=== PATIENT | male | born 2000 | race Caucasian/White ===

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

== ENCOUNTER 2022-11-09 20:56 | Emergency (ER) | payer BC, SELFPAY ==
[2022-11-09 20:57] VITALS: BP 109/84; PULSE 90; RESP 20; TEMP 37.1; O2SAT 100; BMI 16.1
[2022-11-09 21:03] VITALS: BP 109/84; PULSE 99; O2SAT 99
[2022-11-09 21:43] LABS: Microscopic, Urine URINE MICROSCOPIC (MICROSCOPIC)
[2022-11-09 21:43] LABS: Chloride 102 mmol/L (98-107)
[2022-11-09 21:44] LABS: Basophils % 0.2 % (0.1-2.0); Eosinophils # 0.1 K/mm3 (0.0-0.4); Eosinophils % 1.2 % (0.1-12.0); Hematocrit 43.8 % (42.0-52.0); Lymphocytes # 1.2 K/mm3 (0.7-4.5); Lymphocytes % 12.3 % (10-50); Mean Corpuscular Hemoglobin 25.3 pg (27.0-31.2); Mean Corpuscular Volume 79.2 fl (80-94); Monocytes # 0.4 K/mm3 (0.1-1.0); Monocytes % 3.8 % (1.7-9.3); Neutrophils # 8.4 K/mm3 (1.8-7.8); Neutrophils % 82.6 % (37.0-80.0); Platelet Count 179 K/mm3 (142-424); Potassium 3.6 mmoL/L (3.5-5.1); Red Blood Count 5.53 M/mm3 (4.60-6.20); Red Cell Distribution Width 14.7 % (11.5-17.5); Sodium 138 mmol/L (136-145); White Blood Count 10.1 K/mm3 (4.8-10.8)
[2022-11-09 21:47] LABS: Appearance,Urine CLEAR (Clear); Bilirubin,Urine Negative (Negative); Blood, Urine Negative (Negative); Color,Urine YELLOW (Yellow); Glucose,Urine (UA) Negative (Negative); Ketones,Urine Negative (Negative); Leukocyte Esterase,Urine Negative (Negative); Nitrate,Urine Negative (Negative); Protein,Urine Negative (Negative); Specific Gravity, Urine 1.015 (1.005-1.030)
[2022-11-09 21:47] LABS: Alanine Aminotransferase 36 U/L (12-78); Albumin Level 4.8 g/dl (3.5-5.0); Albumin/Globulin Ratio 1.5 (1.1-1.8); Alkaline Phosphatase 72 U/L (38-126); Anion Gap 14.6 mEq/L (5-15); Aspartate Amino Transferase 46 U/L (17-59); Bilirubin,Total 1.2 mg/dl (0.2-1.3); Blood Urea Nitrogen 14 mg/dl (9-20); Calcium 9.6 mg/dl (8.4-10.2); Carbon Dioxide 25 mmol/L (22.0-30.0); Creatinine Clearance Estimated 111 mL/min (50-200); Estimated Glomerular Filt Rate 121 ml/min (>60); GFR (African American) 146 ML/MIN (>60); Globulin 3.2 g/dL (1.3-3.2); Glucose 130 mg/dl (74-100)
--- NOTE | 2022-11-09 21:51 | XR_ITS ---
PROCEDURE INFORMATION: Exam: XR Complete Acute Abdomen Series Including Chest Exam date and time: 11/09/2022 9:51 PM Age: 22 years old Clinical indication: Abdominal pain; Epigastric; Additional info: Epigastric pain TECHNIQUE: Imaging protocol: Radiologic exam. Complete acute abdomen series, including 2 or more views of the abdomen and a single view chest. COMPARISON: ABDPELW CT abdomen pelvis w con 07/11/2018 5:01 PM FINDINGS: Lungs: Normal. No consolidation. Pleural spaces: Normal. No pleural effusions. No pneumothorax. Heart/Mediastinum: Normal. No cardiomegaly. Gastrointestinal tract: Normal. No bowel dilation. Intraperitoneal space: Normal. No free air. Bones/joints: Normal. No acute fracture. Soft tissues: Normal. IMPRESSION: No acute findings.
[2022-11-09 21:54] VITALS: BP 117/72; PULSE 90; O2SAT 96
[2022-11-09 22:10] LABS: Squamous Epithelial Cell,Urine Occasional #/hpf (0-5)
[2022-11-09 22:30] VITALS: BP 124/70; PULSE 91; O2SAT 96
--- NOTE | 2022-11-09 22:47 | PC.NURSE ---
spoke with [facility] powerhouse tender in regards to pt records. [employer] states she will fax them over
--- NOTE | 2022-11-09 22:54 | HMH.EDABDPAI ---
Discharge Plan Disposition Patient Disposition: Home, Self-Care Prescriptions Prescriptions: New dicyclomine 20 mg tablet 20 mg PO QID PRN (Reason: abdominal pain) Qty: 20 0RF Referrals Follow up/Referrals: Salvatore Silva MD [Primary Care Provider] - See instructions Clinical Impressions Clinical Impression: Abdominal pain Instructions Patient Instructions: DI for Acute Abdominal Pain Discharge ED Provider: Jelena Saini Abdominal Pain HPI General Chief Complaint: Abdominal Pain Stated Complaint: abd pain Time Seen by Provider: 11/09/22 21:31 Mode of Arrival: Wheelchair Source of Information: Patient Limitations: No Limitations Description of Symptoms (Recalled from ER Triage Doc. by RN): Pt had a colonoscopy on 10/17 with 5 biopsies taken. Today he had a CT with gastrografin done at [facility] to rule out chrons disease. Pt states he ate a light dinner and his upper abdomen is cramping and he has pian 10/10. No vomiting, but episodes of nausea and diarrhea. History of Present Illness HPI narrative: Patient is a 22-year male who is here secondary to abdominal pain. Patient's complaint severe abdominal pain after he has a CT scan today. Patient said the pain in the epigastric area was 10 out of 10. Patient has no nausea vomiting or diarrhea or constipation associated with it. He has history irritable bowel disease and C. difficile colitis. He was on antibiotic for extended period of time when he had his chronic strep throat. Patient stated that his GI doctor did a scope and found multiple areas of inflammation on his colon they think he could have Crohn's or ulcerative colitis and they are waiting for results from the biopsy. Patient stated that after the CT and he had the oral Gastrografin he had severe pain so he brought himself here but the pain is resolved now. complaint: abdominal pain (Epigastric tenderness) Onset (ago): hour(s) Consistency: intermittent Location: epigastric Severity: severe Severity scale (1-10): 10 Quality: cramping and sharp Radiation: none Migration to: no migration Relieving factors: nothing Exacerbating factors: nothing Associated symptoms: denies other symptoms Related Data Previous Rx's Medication Instructions Recorded dicyclomine 20 mg tablet 20 mg PO QID PRN abdominal pain 11/09/22 #20 tabs Allergies Allergy/AdvReac Type Severity Reaction Status Date / Time No Known Allergies Allergy Unverified 04/17/17 15:08 [facility] Disclaimer: The information contained in this section may have been updated after the patient was seen, as this information can be updated by other users. Social History Smoking Status: Smoker, status unknown alcohol intake: never current occupational status: unemployed Travel in the last 8 weeks: None ROS Obtained: Yes All systems reviewed & no additional complaints except as documented Gastrointestinal Gastrointestingal: Reports abdominal pain Physical Exam General General appearance: alert and in distress Head Head exam: atraumatic, normocephalic and normal inspection Eye Eye exam: Present normal appearance and EOMI; Absent scleral icterus or conjunctival redness ENT ENT exam: Present normal exam, normal oropharynx and mucous membranes moist Neck Neck exam: Present normal inspection, full ROM and trachea midline Chest Chest inspection: Present normal inspection and symmetric chest wall rise Respiratory Respiratory exam: Present normal lung sounds bilaterally Cardiovascular Cardiovascular exam: Present regular rate, normal rhythm, normal heart sounds, +S1 and +S2 Abdominal Exam Abdominal exam: Present soft and normal bowel sounds; Absent distention, tenderness, guarding, rebound or rigidity Extremities Exam Extremities exam: Present normal inspection, full ROM and normal capillary refill; Absent tenderness Back Exam Back exam: Present normal inspection
[2022-11-09 23:00] VITALS: BP 112/75; PULSE 88; RESP 16; TEMP 37.1
== END 2022-11-09 23:08 | disposition home or self-care (01) ==
PROVIDERS: Emergency Provider Emergency Medicine; PCP Family Medicine
DX: R10.13 Epigastric pain (principal); K58.9 Irritable bowel syndrome, unspecified
CPT/HCPCS: 74021; 80053; 81001; 85025; 99284; 99285

== ENCOUNTER 2023-07-25 18:58 | Outpatient (CLI) | payer BC, SELFPAY ==
[2023-07-31 23:29] LABS: Pancreatic Elastase, Fecal >500 (>200)
[2023-08-01 01:08] LABS: Calprotectin, Fecal 2720 ug/g (0-120)
== END 2023-07-25 23:59 ==
LOC: LAB.DROPOF 18:59
PROVIDERS: PCP Internal Medicine Gastroenterology; Visit Provider Internal Medicine Gastroenterology
DX: K50.018 Crohn's disease of small intestine with other complication (principal); R19.5 Other fecal abnormalities; R15.0 Incomplete defecation
CPT/HCPCS: 82656; 83993

== ENCOUNTER 2023-09-27 14:40 | Outpatient (CLI) | payer BC, SELFPAY ==
[2023-09-29 21:14] LABS: QuantiFERON-TB Gold Plus Negative (Negative)
== END 2023-09-27 23:59 | disposition home or self-care (01) ==
LOC: LAB 14:42
PROVIDERS: PCP Family Medicine; Visit Provider Internal Medicine Gastroenterology
DX: R76.12 Nonspecific reaction to cell mediated immunity measurement of gamma interferon antigen response without active tuberculosis (principal)
CPT/HCPCS: 36415; 86480

== ENCOUNTER 2023-10-15 12:48 | Outpatient (CLI) | payer BC, SELFPAY ==
[2023-10-15] MEDS: METHYLPREDNISOLONE SOD SUCC 125MG VIAL 125 MG (13:05)
[2023-10-15] MEDS: ACETAMINOPHEN 325MG TAB 650 MG (13:05)
[2023-10-15] MEDS: 0.9 % SODIUM CHLORIDE 50 ML 25 ML IV (13:05)
[2023-10-15] MEDS: diphenhydrAMINE 25MG CAPSULE 25 MG PO (13:06)
[2023-10-15 13:45] VITALS: BP 119/66; PULSE 69; RESP 18; TEMP 36.7; O2SAT 98
[2023-10-15] MEDS: SODIUM CHLORIDE 0.9% 50ML BAG 50 ML IV (13:46)
[2023-10-15 14:15] VITALS: BP 129/79; PULSE 91; RESP 18
[2023-10-15 14:40] VITALS: BP 130/85; PULSE 89; RESP 18
[2023-10-15 14:55] VITALS: BP 115/75; PULSE 69; RESP 18; O2SAT 98
== END 2023-10-15 14:55 | disposition home or self-care (01) ==
LOC: INF 12:49
PROVIDERS: PCP Family Medicine; Visit Provider Internal Medicine Gastroenterology
DX: Z51.12 Encounter for antineoplastic immunotherapy (principal); K50.919 Crohn's disease, unspecified, with unspecified complications; K50.00 Crohn's disease of small intestine without complications; Z79.620 Long term (current) use of immunosuppressive biologic; Z79.52 Long term (current) use of systemic steroids
CPT/HCPCS: 96413; J2919; J3590

== ENCOUNTER 2023-10-22 16:38 | Outpatient (CLI) | payer BC, SELFPAY | END 2023-10-22 23:59 | disposition home or self-care (01) | LOC: LAB.DROPOF 16:38 | PROVIDERS: PCP Nurse Practitioner; Visit Provider Nurse Practitioner | DX: L60.9 Nail disorder, unspecified (principal) | CPT/HCPCS: 87070; 87102; 87186; 87205; 87206; 87220 ==

== ENCOUNTER 2023-12-06 16:08 | Outpatient (CLI) | payer BC, SELFPAY ==
[2023-12-13 07:22] LABS: Calprotectin, Fecal 12 ug/g (0-120)
== END 2023-12-06 23:59 | disposition home or self-care (01) ==
PROVIDERS: PCP Family Medicine; Visit Provider Internal Medicine Gastroenterology
DX: K50.919 Crohn's disease, unspecified, with unspecified complications (principal)
CPT/HCPCS: 83993

== ENCOUNTER 2024-02-01 13:24 | Outpatient (CLI) | payer BC, SELFPAY ==
[2024-02-01 13:56] LABS: Basophils % 0.7 % (0.1-2.0); Eosinophils # 0.1 K/mm3 (0.0-0.4); Eosinophils % 2.2 % (0.1-12.0); Hematocrit 46.3 % (42.0-52.0); Hemoglobin 15.3 g/dL (14.1-18.0); Lymphocytes # 1.4 K/mm3 (0.7-4.5); Lymphocytes % 27.2 % (10-50); Mean Corpuscular HGB Conc 32.9 g/dL (31.8-35.4); Mean Corpuscular Hemoglobin 26.8 pg (27.0-31.2); Mean Corpuscular Volume 81.3 fl (80-94); Mean Platelet Volume 8.3 fl (7.4-10.4); Monocytes # 0.3 K/mm3 (0.1-1.0); Monocytes % 5.4 % (1.7-9.3); Neutrophils # 3.3 K/mm3 (1.8-7.8); Neutrophils % 64.4 % (37.0-80.0); Platelet Count 145 K/mm3 (142-424); Red Cell Distribution Width 14.8 % (11.5-17.5); White Blood Count 5.1 K/mm3 (4.8-10.8)
[2024-02-01 14:23] LABS: Chloride 103 mmol/L (98-107); Sodium 138 mmol/L (136-145)
[2024-02-01 14:25] LABS: Blood Urea Nitrogen 16 mg/dl (9-20); Estimated Glomerular Filt Rate 120 ml/min (>60); GFR (African American) 145 ML/MIN (>60)
[2024-02-01 14:26] LABS: Alanine Aminotransferase 20 U/L (12-78); Alkaline Phosphatase 53 U/L (38-126); Aspartate Amino Transferase 26 U/L (17-59); Bilirubin,Total 2.7 mg/dl (0.2-1.3); Calcium 10.3 mg/dl (8.4-10.2); Carbon Dioxide 29 mmol/L (22.0-30.0); Globulin 2.5 g/dL (1.3-3.2); Glucose 94 mg/dl (74-100); Iron 154 ug/dL (49-181); Total Protein,Serum 7.5 g/dl (6.3-8.2)
[2024-02-01 14:35] LABS: Total Iron Binding Capacity 320 ug/dL (261-462)
[2024-02-01 14:43] LABS: C-Reactive Protein < 0.3 mg/L (0-4)
[2024-02-01 14:57] LABS: Thyroid Stimulating Hormone 1.41 uIU/mL (0.465-4.68)
[2024-02-01 15:01] LABS: Ferritin 72.4 ng/ml (17.9-464)
[2024-02-05 17:18] LABS: Calprotectin, Fecal 51 ug/g (0-120)
== END 2024-02-01 23:59 | disposition home or self-care (01) ==
PROVIDERS: PCP Family Medicine; Visit Provider Internal Medicine Gastroenterology
DX: K50.919 Crohn's disease, unspecified, with unspecified complications (principal)
CPT/HCPCS: 36415; 80050; 80053; 82728; 83540; 83550; 83993; 84443; 85025; 86140

== ENCOUNTER 2024-02-07 14:09 | Outpatient (CLI) | payer BC, SELFPAY ==
[2024-02-07 15:10] LABS: Chloride 103 mmol/L (98-107); Sodium 140 mmol/L (136-145)
[2024-02-07 15:11] LABS: Potassium 3.9 mmoL/L (3.5-5.1)
[2024-02-07 15:13] LABS: Alanine Aminotransferase 22 U/L (12-78); Alkaline Phosphatase 52 U/L (38-126); Anion Gap 13.9 mEq/L (5-15); Aspartate Amino Transferase 26 U/L (17-59); Bilirubin,Total 2.3 mg/dl (0.2-1.3); Blood Urea Nitrogen 13 mg/dl (9-20); Carbon Dioxide 27 mmol/L (22.0-30.0); Estimated Glomerular Filt Rate 105 ml/min (>60); GFR (African American) 127 ML/MIN (>60); Globulin 2.5 g/dL (1.3-3.2); Total Protein,Serum 7.5 g/dl (6.3-8.2)
[2024-02-07 15:14] LABS: Glucose 93 mg/dl (74-100)
== END 2024-02-07 23:59 | disposition home or self-care (01) ==
LOC: LAB 14:10
PROVIDERS: PCP Family Medicine; Visit Provider Internal Medicine Gastroenterology
DX: R17 Unspecified jaundice (principal)
CPT/HCPCS: 36415; 80053; 82248

== ENCOUNTER 2024-06-18 16:10 | Outpatient (CLI) | payer BC, SELFPAY ==
[2024-06-20 07:59] LABS: Calprotectin, Fecal 16 ug/g (0-120)
== END 2024-06-18 23:59 | disposition home or self-care (01) ==
LOC: LAB.DROPOF 16:10
PROVIDERS: PCP Family Medicine; Visit Provider Internal Medicine Gastroenterology
DX: K50.00 Crohn's disease of small intestine without complications (principal)
CPT/HCPCS: 83993